=== PATIENT | male | born 1980 | race Two or more races ===

== ENCOUNTER 2021-02-22 17:08 | Emergency (ER) | payer OTHER ==
[~2021-02-22] VITALS: Ht 170.2 cm; Wt 83.9 kg
[2021-02-22] MEDS ORDERED: ACIPHEX20 MG (17:28)
== END 2021-02-22 20:54 | disposition home or self-care (01) ==
LOC: ER 17:08
DX: R06.6 Hiccough (principal); R11.10 Vomiting, unspecified